=== PATIENT | female | born 1960 | race Caucasian/White ===

== ENCOUNTER → 2017-04-03 | Outpatient (CLI) | payer OTHER ==
[~2017-04-03] MED LIST: CALC1TAB27 PO; CHOL2000 PO; CRANPOW PO; FSMD/70 PO; LACT1CAP6 PO; LORA-741 PO
--- NOTE | 2017-04-03 17:04 | DIAGNOSTIC IMAGING REPORT ---
LEFT FOOT MIN 3 VIEWS ROUTINE CLINICAL HISTORY: TRAUMA/FALL trauma. Pain. COMPARISON: None. DISCUSSION: Heel spur. Mild degenerative changes throughout. No acute bony abnormality. Cortical margins are intact. There is no evidence for soft tissue swelling. IMPRESSION: Heel spur. Mild degenerative change. No acute bony abnormality. The above report was generated using voice recognition software. It may contain grammatical, syntax or spelling errors. Electronically signed by: Alejandro Kelly M.D. 04/03/2017 5:03 PM Dictated Date/Time: 04/03/2017 5:02 PM
--- NOTE | 2017-04-03 17:06 | DIAGNOSTIC IMAGING REPORT ---
RIGHT ANKLE MIN 3 VIEWS ROUTINE CLINICAL HISTORY: TRAUMA/FALL Right pain COMPARISON: None. DISCUSSION: The bones and joint spaces appear intact. There is no evidence of fracture, dislocation or bony disease. Small heel spur. Minimal ossification Achilles tendon insertion. Subtalar joint is intact. IMPRESSION: Small heel spur. No acute bony abnormality. The above report was generated using voice recognition software. It may contain grammatical, syntax or spelling errors. Electronically signed by: Alejandro Kelly M.D. 04/03/2017 5:04 PM Dictated Date/Time: 04/03/2017 5:03 PM
== END | disposition home or self-care (01) ==
LOC: C.RAD 16:28
PROVIDERS: ATTEND Internal Medicine
DX: S99.911A Unspecified injury of right ankle, initial encounter (principal); S99.922A Unspecified injury of left foot, initial encounter; W19.XXXA Unspecified fall, initial encounter; M77.32 Calcaneal spur, left foot

== ENCOUNTER → 2017-07-17 | Outpatient (CLI) | payer OTHER ==
--- NOTE | 2017-07-17 09:35 | DIAGNOSTIC IMAGING REPORT ---
L HIP UNILATERAL 2 VIEWS CLINICAL HISTORY: 56 years-old Female presenting with LEFT HIP PAIN. TECHNIQUE: Frontal and frog-leg lateral views of the left hip were obtained. COMPARISON: CT from 12/07/2012. FINDINGS: Left hip joint congruent. No advanced degenerative change. Minimal heterotopic ossification noted in the region of the greater and lesser tuberosities. Acute fracture or malalignment. Visualized portion of the bony pelvis normal. Few pelvic phleboliths noted. IMPRESSION: No acute osseous injury of the left hip. Electronically signed by: Boris Rangel M.D. 07/17/2017 9:33 AM Dictated Date/Time: 07/17/2017 9:32 AM
== END | disposition home or self-care (01) ==
LOC: C.RAD 09:17
PROVIDERS: ATTEND Internal Medicine
DX: M25.552 Pain in left hip (principal)

== ENCOUNTER → 2018-04-12 | Outpatient (CLI) | payer OTHER | END | disposition home or self-care (01) | LOC: C.MAMM 13:13 | PROVIDERS: ATTEND Internal Medicine | DX: M81.0 Age-related osteoporosis without current pathological fracture (principal); M85.89 Other specified disorders of bone density and structure, multiple sites ==

== ENCOUNTER 2021-10-14 23:25 | Observation (INO) ==
[2021-10-14 23:57] LABS: Basophils # (auto) 0.04 K/uL (0-0.2); Basophils % (auto) 0.2 %; Eosinophils % (auto) 0.5 %; Hemoglobin 14.5 g/dL (12.0-16.0); Immature Granulocytes # (auto) 0.23 K/uL (0.00-0.02); Immature Granulocytes % (auto) 1.2 %; Lymphocytes # (auto) 4.68 K/uL (1.2-3.4); Lymphocytes % (auto) 24.5 %; Mean Corpuscular Hemoglobin 31.4 pg (25-34); Mean Corpuscular Hgb Conc 33.7 g/dL (32-36); Mean Corpuscular Volume 93.1 fL (80-100); Monocytes % (auto) 7.3 %; Neutrophils # (auto) 12.62 K/uL (1.4-6.5); Neutrophils % (auto) 66.3 %; Platelet Count 268 K/uL (130-400); RDW Coefficient of Variation 13.7 % (11.5-14.5); RDW Standard Deviation 46.4 fL (36.4-46.3); Red Blood Count 4.62 M/uL (4.2-5.4); White Blood Count 19.07 K/uL (4.8-10.8)
[2021-10-15 00:19] LABS: Troponin I < 0.03 ng/ml (0-0.04)
[2021-10-15 00:22] LABS: Alanine Aminotransferase 17 U/L (7-52); Albumin Globulin Ratio 1.8 (0.9-2); Albumin Level 4.2 gm/dl (3.4-5.0); Alkaline Phosphatase 96 U/L (34-104); Anion Gap 7 (3-11); Aspartate Aminotransferase 11 U/L (13-39); BUN Creatinine Ratio 29.2 (10-20); Bilirubin,Total 0.3 mg/dl (0.2-1.0); Blood Urea Nitrogen 19 mg/dl (6-23); Calcium 9.7 mg/dl (8.5-10.1); Carbon Dioxide 30 mmol/L (21-32); Chloride 103 mmol/L (98-107); Creatinine Clr Calc Pharmacy 86.4 ml/min; Est GFR (African American) 109.5 ml/min; Est GFR (Non-African American) 94.5 ml/min; Globulin 2.3 gm/dl (2.5-4.0); Glucose 133 mg/dl (70-99(Fasting)); Lipase 26 U/L (11-82); Potassium 3.3 mmol/L (3.5-5.1); Sodium 140 mmol/L (136-145); Total Protein 6.5 gm/dl (6.0-8.3)
[2021-10-15] MEDS ORDERED: SODIUM CHLORIDE 0.9% 1000ML 500 ML IV ONE (00:23)
--- NOTE | 2021-10-15 00:25 | Emergency Department Note ---
Impression & Plan Chest pain ADMIT ED Provider Note HPI: The patient is a 61-year-old female who presents the emergency department with a chief complaint of chest pain. Patient states the chest pain is been ongoing for the past hour and a half. States that it is substernal in nature, radiates somewhat up towards her jaw. Patient states it also radiates to her back. She states that the pain is actually much improved from previous by the time she is arrived here in the ED on my initial examination. Patient denies any nausea or vomiting, on arrival here to the ED she is hypertensive but otherwise in no acute distress, saturating well on room air. 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 No pulmonary emboli are identified. The thoracic aorta is nondilated. There is no aneurysm or dissection. The heart size is upper normal. No pericardial effusion. Mediastinal or axillary lymphadenopathy or mass is identified. The lungs are well inflated. There is slight interstitial haziness greatest inferiorly. This is nonspecific and could represent pulmonary edema or subsegmental atelectasis, viral pneumonitis is considered less likely. No pneumothorax or pleural effusion. Mild to moderate degenerative changes in the lower thoracic spine. No acute fracture or bone lesion. Limited images of the upper abdomen appear unremarkable. Radiologist: Mundo Ahmadi MD Medical Decision Making: Patient presented to the emergency department the chief complaint of chest pain. On arrival here to the ED she is hemodynamically stable, states her pain is improving. EKG does not show any acute ischemic changes, troponin is negative x1, given the nature of the patient's pain and radiation to her back, she states it was relatively acute and severe, I did obtain CT angiography that does not show any evidence of pulmonary embolism or aortic dissection. Patient is noted have a leukocytosis, she tells me she is finishing a steroid taper for the past 3 weeks for "Covid symptoms". I suspect this is the source of her leukocytosis as she has not had any fevers, denies any recent coughing, she otherwise appears well and is afebrile here in the ED. In regards to the patient's chest discomfort, this was relatively acute in onset and happened shortly prior to arrival to the ED, I believe given her risk factors including longstanding smoking history, obesity, hyperlipidemia, she would benefit from admission for trending of troponins and stress testing in the morning. Patient tells me she has not had a stress test previously. I discussed the above findings with the on-call hospitalist service for [facility] and the patient was admitted to a telemetry bed in stable condition. Diagnosis: 1. Chest pain, nonspecific 2. Leukocytosis 3. Active smoker/tobacco use 4. History of hyperlipidemia 5. Hypertension Disposition: Admission Alejandro Payne DO Emergency Medicine Past Med/Surg History Medical History (Updated 10/15/21 @ 06:18 by Alejandro Payne DO) COVID-19 virus infection DCIS (ductal carcinoma in situ) of breast (~05/09/14) Fibromyalgia Surgical History (Updated 10/04/21 @ 16:09 by Rosy Davis MD) S/P mastectomy, bilateral (05/28/14) Family History Aunt Breast cancer Aunt Ovarian cancer Denies family history of Prostate cancer Myocardial infarction Colorectal cancer Social History (Updated 10/04/21 @ 16:17 by Kari Govea LPN) Smoking Status: Current every day smoker Tobacco Type: Cigarettes Second Hand Exposure: No; Do You Dip or Chew Tobacco: No; Tobacco Cessation Education Requested by Patient: No (pt declined) Hx Alcohol Use: No Hx Substance Use: No Preferred Language: Uzbek Communication Ability: Effective Hotel Or Motel Receptionist Required: Yes Beliefs That Will Affect Care: None marital status: Current Living Situation: Spouse current occupational status: employed 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 [employer] How many Children do You have: 3 Feels Safe at Home: Yes Safety Concerns: Feels Safe At This Time Childhood Exposure to Second-Hand Smoke: Yes caffeine: Yes Dental Care, Regularly: Yes Physical Activity Frequency: Daily Seatbelt Use: always Sunscreen Use: Yes Allergies Allergies Allergy/AdvReac Type Severity Reaction Status Date / Time latex Allergy Unknown local skin Verified 10/15/21 00:36 rash No Known Drug Allergies Allergy Unknown Verified 10/15/21 00:36 Home Meds Home Medications Medication Instructions Recorded Confirmed duloxetine 30 mg capsule,delayed 30 mg PO DAILY 05/03/21 10/15/21 release duloxetine 60 mg capsule,delayed 60 mg PO DAILY 05/03/21 10/15/21 release B-complex with vitamin C 1 tab PO DAILY 10/04/21 10/15/21 calcium citrate 200 mg 1 tab PO DAILY 10/04/21 10/15/21 calcium-vitamin D3 6.25 mcg (250 unit) tablet (Citracal-D3 Petites) cholecalciferol (vitamin D3) 25 25 mcg PO DAILY 10/04/21 10/15/21 mcg (1,000 unit) capsule coffee 100 mg theanine 200 mg See Rx Instructions PO .COMPLEX 10/04/21 10/15/21 superoxide dismutase 10 mg capsule (Neuriva De-Stress) cranberry fruit concentrate 250 mg 250 mg PO DAILY tab 10/04/21 10/15/21 chewable tablet (Azo Cranberry) vit C,E,zinc,copper-[id number] 250 1 cap PO DAILY 10/04/21 10/15/21 mg-lutein 5 mg-zeaxanthin 1 mg capsule (Ocuvite Adult 50 Plus) vitamin A 2,400 mcg capsule 2,400 mcg PO DAILY 10/04/21 10/15/21 vitamin E (dl, acetate) 180 mg 180 mg PO DAILY 10/04/21 10/15/21 (400 unit) capsule Previous Rx's Medication Instructions Recorded nicotine See Rx Instructions TRANSDERMAL 10/04/21 21mg/24hr-14mg/24hr-7mg/24hr daily .COMPLEX #56 patch transderm patches,sequentl prednisone 20 mg tablet See Rx Instructions PO .COMPLEX 10/04/21 #30 tab atorvastatin 40 mg tablet 40 mg PO DAILY #30 tab 10/05/21 Results & Data (ED) Vital Signs Vital Signs - 24 hr 10/14/21 23:32 10/15/21 00:35 10/15/21 02:00 Temperature 36.4 C L Temperature Source Temporal Artery Scan Pulse Rate 76 77 Pulse Rate [Finger] 77 68 Respiratory Rate 18 18 18 Respiratory Effort / Characteristics Non-Labored Spontaneous Respiratory Depth Normal Respiratory Pattern Regular Blood Pressure 161/85 H Blood Pressure [Right Arm] 137/81 159/94 H Blood Pressure Mean 110 Blood Pressure Mean [Right Arm] 99 115 Blood Pressure Position Sitting Blood Pressure Position [Right Arm] Lying Lying Pulse Oximetry 97 96 94 Oxygen Delivery Method Room Air Room Air Room Air Sepsis Recent Fever Within 48 Hours No Sepsis New/Unexplained Change in Mental Status No Sepsis Action Taken by Nursing No Action Required 10/15/21 02:54 Temperature Temperature Source Pulse Rate Pulse Rate [Finger] 72 Respiratory Rate 18 Respiratory Effort / Characteristics Respiratory Depth Respiratory Pattern Blood Pressure Blood Pressure [Right Arm] 140/92 Blood Pressure Mean Blood Pressure Mean [Right Arm] 108 Blood Pressure Position Blood Pressure Position [Right Arm] Lying Pulse Oximetry 92 Oxygen Delivery Method Room Air Sepsis Recent Fever Within 48 Hours Sepsis New/Unexplained Change in Mental Status Sepsis Action Taken by Nursing Laboratory Data Result diagrams: 10/15/21 05:52 10/14/21 23:45 Lab Results 10/14/21 10/14/21 10/15/21 Range/Units 23:45 23:45 00:46 WBC 19.07 H (4.8-10.8) K/uL RBC 4.62 (4.2-5.4) M/uL Hgb 14.5 (12.0-16.0) g/dL Hct 43.0 (37-47) % MCV 93.1 (80-100) fL MCH 31.4 (25-34) pg MCHC 33.7 (32-36) g/dL RDW Std Deviation 46.4 H (36.4-46.3) fL RDW Coeff of Sabra 13.7 (11.5-14.5) % Plt Count 268 (130-400) K/uL MPV 10.0 (7.4-10.4) fL Immature Gran % (Auto) 1.2 % Neut % (Auto) 66.3 % Lymph % (Auto) 24.5 % [place] % (Auto) 7.3 % Eos % (Auto) 0.5 % Baso % (Auto) 0.2 % Neut # (Auto) 12.62 H (1.4-6.5) K/uL Lymph # (Auto) 4.68 H (1.2-3.4) K/uL [place] # (Auto) 1.40 H (0.11-0.59) K/uL Eos # (Auto) 0.10 (0-0.5) K/uL Baso # (Auto) 0.04 (0-0.2) K/uL Immature Gran # (Auto) 0.23 H (0.00-0.02) K/uL Sodium 140 (136-145) mmol/L Potassium 3.3 L (3.5-5.1) mmol/L Chloride 103 (98-107) mmol/L Carbon Dioxide 30 (21-32) mmol/L Anion Gap 7 (3-11) BUN 19 (6-23) mg/dl Creatinine 0.65 (0.6-1.2) mg/dl Est Cr Clr Drug Dosing 86.4 ml/min Est GFR ( Amer) 109.5 ml/min Est GFR (Non-Af Amer) 94.5 ml/min BUN/Creatinine Ratio 29.2 H (10-20) Glucose 133 H (70-99(Fasting)) mg/dl Lactate 1.1 (0.4-2.0) mmol/L Calcium 9.7 (8.5-10.1) mg/dl Total Bilirubin 0.3 (0.2-1.0) mg/dl AST 11 L (13-39) U/L ALT 17 (7-52) U/L Alkaline Phosphatase 96 (34-104) U/L Troponin I < 0.03 (0-0.04) ng/ml Total Protein 6.5 (6.0-8.3) gm/dl Albumin 4.2 (3.4-5.0) gm/dl Globulin 2.3 L (2.5-4.0) gm/dl Albumin/Globulin Ratio 1.8 (0.9-2) Lipase 26 (11-82) U/L Procalcitonin (0-0.5) ng/ml SARS-CoV-2, RNA, NAAT (NEGATIVE) 10/15/21 10/15/21 Range/Units 00:46 02:28 WBC (4.8-10.8) K/uL RBC (4.2-5.4) M/uL Hgb (12.0-16.0) g/dL Hct (37-47) % MCV (80-100) fL MCH (25-34) pg MCHC (32-36) g/dL RDW Std Deviation (36.4-46.3) fL RDW Coeff of Sabra (11.5-14.5) % Plt Count (130-400) K/uL MPV (7.4-10.4) fL Immature Gran % (Auto) % Neut % (Auto) % Lymph % (Auto) % [place] % (Auto) % Eos % (Auto) % Baso % (Auto) % Neut # (Auto) (1.4-6.5) K/uL Lymph # (Auto) (1.2-3.4) K/uL [place] # (Auto) (0.11-0.59) K/uL Eos # (Auto) (0-0.5) K/uL Baso # (Auto) (0-0.2) K/uL Immature Gran # (Auto) (0.00-0.02) K/uL Sodium (136-145) mmol/L Potassium (3.5-5.1) mmol/L Chloride (98-107) mmol/L Carbon Dioxide (21-32) mmol/L Anion Gap (3-11) BUN (6-23) mg/dl Creatinine (0.6-1.2) mg/dl Est Cr Clr Drug Dosing ml/min Est GFR ( Amer) ml/min Est GFR (Non-Af Amer) ml/min BUN/Creatinine Ratio (10-20) Glucose (70-99(Fasting)) mg/dl Lactate (0.4-2.0) mmol/L Calcium (8.5-10.1) mg/dl Total Bilirubin (0.2-1.0) mg/dl AST (13-39) U/L ALT (7-52) U/L Alkaline Phosphatase (34-104) U/L Troponin I (0-0.04) ng/ml Total Protein (6.0-8.3) gm/dl Albumin (3.4-5.0) gm/dl Globulin (2.5-4.0) gm/dl Albumin/Globulin Ratio (0.9-2) Lipase (11-82) U/L Procalcitonin < 0.05 (0-0.5) ng/ml SARS-CoV-2, RNA, NAAT NEGATIVE (NEGATIVE) Administered Medications Discontinued Medications Aspirin (Aspirin Chew 324 Mg) 324 mg PO NOW STA Stop: 10/15/21 02:23 Last Admin: 10/15/21 02:27 Dose: 324 mg Documented by: [id number] Sodium Chloride (Nss 1000ml) 500 mls @ 999 mls/hr IV .Q31M ONE Stop: 10/15/21 00:53 Last Infusion: 10/15/21 01:32 Dose: 0 mls/hr Documented by: [id number] Admin: 10/15/21 00:48 Dose: 999 mls/hr Documented by: [id number] Ioversol (Optiray 320 125ml) 121 ml IV ONCE ONE Stop: 10/15/21 01:24 Last Admin: 10/15/21 01:23 Dose: 1 ml Documented by: [id number] Discharge Plan Visit Data Chief Complaint: Cardiac Assessment Stated Complaint: CHEST PAIN/PRESSURE ED Provider: Alejandro Payne Discharge Problem: Chest pain Patient Disposition: Admitted As Inpatient Discharge Instructions Interventions: ED Discharge Assessment Last Done: 10/15/21 04:16 Discharge Problem: Chest pain Qualifiers: Chest pain type: unspecified Qualified Code(s): R07.9 - Chest pain, unspecified
[2021-10-15] MEDS ORDERED: OPTIRAY 320 125ml IV ONE (01:23)
[2021-10-15] MEDS ORDERED: ASPIRIN CHEW 324 MG PO STA (02:22)
--- NOTE | 2021-10-15 02:36 | History & Physical Report ---
Date of Service October 15, 2021 Assessment & Plan (1) Chest pain: Plan: This is a 61-year-old female with a past history of tobacco use (40 pack year), HLD, DCIS status post bilateral mastectomy and fibromyalgia who presents for evaluation of chest pain. She said she was nearly asleep at 2300 last night when she developed a sudden-onset, heavy-feeling chest pain in the left side of her chest that extended up to her jaw and radiated down her arms. Her history and risk factors are suspicious for ACS, but troponin and ECG tests have been normal since arrival (to date). She remains for chest pain rule-out. Chest Pain Patient reporting sudden onset chest pain with radiation to the jaw and arms that began at 2300 the night of admission; also noted that with her home WRIST blood pressure monitor, blood pressure was 200/140 at that time History and reported symptoms are concerning for ACS, especially given numerous risk factors: Over 46-epaf-hdix smoking history, obesity, hyperlipidemia, metabolic syndrome/prediabetes --> HEART Score: 4 (moderate risk) DDX: HTN urgency/emergency considered as a possibility (home reading noted, but wrist monitor), but acuity of this and only symptoms being within the chest is somewhat atypical; further, not on any antiHTNs -- suspect elevated reading was likely reactive to the pain. In the context of also consuming a carb heavy meal with red sauce, gastritis/GERD/esophageal spasm also considered as a possibility, however seem less likely at this time. Would not be typical of a fibromyalgia flare. Mastectomy scar tissue / myofascial pain also considered, but patient reports pain as different than that. Work-up as follows: Notable leukocytosis with PMN predominance in the setting of 2 weeks of steroids CTA without any evidence of dissection or acute pulmonary process, other t monet some haziness at both bases EKG without acute repolarization or conduction abnormalities Troponin negative on arrival Continue trending troponin total of 3 times Repeat EKG in a.m. Monitor on telemetry If troponin does not result positive, proceed with stress test (exercise) which is already ordered while here If troponin does result positive: Order TTE, start low-dose heparin drip, consult cardiology Consider anti-acid therapy if indicated Check lipid panel in a.m. We will make n.p.o. now until clinical picture is clear, troponin labs return (2) Leukocytosis: Plan: Patient noted to have leukocytosis to 19 with PMN predominance, but as well as lymphocytosis and monocytosis No obvious infectious source at this time; patient denying any respiratory symptoms, no skin issues, no GI symptoms In the setting of nearly 2 weeks of prednisone therapy, suspect largely demargination reaction Monitor Discontinue prednisone as above (3) Fibromyalgia: Plan: History of fibromyalgia noted Continue Cymbalta 90 mg daily (4) COVID-19 virus infection: Plan: History of COVID-19 noted, approximately 3 weeks prior to admission Covid testing on admission negative We will stop the steroid taper she was on as an outpatient for sinusitis-like symptoms (5) S/P mastectomy, bilateral: Plan: History noted; per PCP notes, no longer gets mammography and no longer follows with oncology (6) Tobacco use: Plan: Patient reports smoking over 1 pack/day for over 40 years: 76-uwaj-[id number] history Patient said that her quit date was originally supposed to be tomorrow; congratulated her on this and encouraged her to maintain this goal despite the ongoing events, and if anything, to use these events as motivation Can supply nicotine replacement patches as needed while here Will require further discussion on lung cancer screening, if not done already, as an outpatient with PCP (7) HLD (hyperlipidemia): Plan: History noted Continue atorvastatin 40 mg daily Lipid panel reviewed from earlier this month; ASCVD 11.8%can consider further discussions as outpatient on aspirin, if is not relevant during the rest of the stay with chest pain work-up (8) Elevated blood pressure reading: Plan: Patient reported reading of 200/140 at home with a wrist blood pressure cuff during the chest pain event; however, suspect large margin of error with this Blood pressures have been elevated since arrival here, but in the context of a stressful event Outpatient blood pressure readings seem reasonable; will require further monitoring in the setting of her metabolic syndrome and numerous risk factors for cardiovascular disease Plan: Code: DNR/DNIdiscussed at the bedside with patient Dispo: MedSurg with telemetry Prophylaxis: Mechanical SCDs, if anticipating staying longer, can consider pharmacologic Diet: N.p.o., consider transition to HH when appropriate History of Present Illness Primary Care Provider: Rosy Davis MD While happening, she used her wrist blood pressure cuff and said the reading was ~200/140. No reported GOMEZ/vision abnormalities during this time, and denied n/v. She does report eating pasta w/ meatsauce last night, and initially questioned whether her symptoms may have been secondary to this - but said she doesn't normally struggle with heartburn, so was thought to be less likely. She also wondered if it could have been secondary to pain from her mastectomy areas / scar tissue - but again, has never had pain like this before, and no recent skin changes/rash/discharge. She called her [id number]-fk-lnc who told her to go to the ER. Up until this event, she said she has mostly been in her normal health. Of note, patient recently saw her PCP on 10/04/2021, whereby she reported having history of COVID-19 approximately 3 weeks prior. She was given a course of prednisone at this time to help with her sinus symptoms (post-COVID). She says that over the past few weeks, she has been sweating more with even minimal physical activity. Denies CP/SOB with exertion. No PND/orthopnea. Medications were reviewed, and include atorvastatin 40 mg, duloxetine 90 mg daily, nicotine transdermal patch, vitamins. In the ED, she was found to have normal vital signs. EKG was without conduction or repolarization abnormalities. Labs were significant for leukocytosis to nineteen with neutrophilia and lymphocytosis and monocytosis. BM P reveals mild hypokalemia 3.3, troponin normal, LFTs within normal limits, lipase and pro-Erik negative. CTA of the chest demonstrated no pulmonary emboli, did demonstrate some interstitial haziness that was concerning for atelectasis/viral pneumonitis/pulmonary edema. Blood cultures were obtained. She was given ASA x 1 and called to admission for further cardiac work-up. Allergies Allergy/AdvReac Type Severity Reaction Status Date / Time latex Allergy Unknown local skin Verified 10/15/21 00:36 rash No Known Drug Allergies Allergy Unknown Verified 10/15/21 00:36 Home Medications Medication Instructions Recorded Confirmed Type duloxetine 30 mg capsule,delayed 30 mg PO DAILY 05/03/21 10/15/21 History release duloxetine 60 mg capsule,delayed 60 mg PO DAILY 05/03/21 10/15/21 History release B-complex with vitamin C 1 tab PO DAILY 10/04/21 10/15/21 History calcium citrate 200 mg 1 tab PO DAILY 10/04/21 10/15/21 History calcium-vitamin D3 6.25 mcg (250 unit) tablet (Citracal-D3 Petites) cholecalciferol (vitamin D3) 25 25 mcg PO DAILY 10/04/21 10/15/21 History mcg (1,000 unit) capsule coffee 100 mg theanine 200 mg See Rx Instructions PO .COMPLEX 10/04/21 10/15/21 History superoxide dismutase 10 mg capsule (Neuriva De-Stress) cranberry fruit concentrate 250 mg 250 mg PO DAILY tab 10/04/21 10/15/21 History chewable tablet (Azo Cranberry) nicotine See Rx Instructions TRANSDERMAL 10/04/21 10/15/21 Rx 21mg/24hr-14mg/24hr-7mg/24hr daily .COMPLEX #56 patch transderm patches,sequentl prednisone 20 mg tablet See Rx Instructions PO .COMPLEX 10/04/21 10/15/21 Rx #30 tab vit C,E,zinc,copper-wcjqe8m 250 1 cap PO DAILY 10/04/21 10/15/21 History mg-lutein 5 mg-zeaxanthin 1 mg capsule (Ocuvite Adult 50 Plus) vitamin A 2,400 mcg capsule 2,400 mcg PO DAILY 10/04/21 10/15/21 History vitamin E (dl, acetate) 180 mg 180 mg PO DAILY 10/04/21 10/15/21 History (400 unit) capsule atorvastatin 40 mg tablet 40 mg PO DAILY #30 tab 10/05/21 10/15/21 Rx Past Med/Surg History Medical History (Updated 10/15/21 @ 06:18 by Alejandro Payne DO) COVID-19 virus infection DCIS (ductal carcinoma in situ) of breast (~05/09/14) Fibromyalgia Surgical History (Updated 10/04/21 @ 16:09 by Rosy Davis MD) S/P mastectomy, bilateral (05/28/14) Family History Aunt Breast cancer Aunt Ovarian cancer Denies family history of Prostate cancer Myocardial infarction Colorectal cancer Social History (Updated 10/04/21 @ 16:17 by Kari Govea LPN) Smoking Status: Current every day smoker Tobacco Type: Cigarettes Second Hand Exposure: No; Do You Dip or Chew Tobacco: No; Tobacco Cessation Education Requested by Patient: No (pt declined) Hx Alcohol Use: No Hx Substance Use: No Preferred Language: Polish Communication Ability: Effective 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 HEENT: NCAT. - Eyes - Sclera are white, anicteric, and without injection. PERRL. - Mouth - MMM with no tonsillar edema or exudates. - Neck - supple and without LAD. No JVD. Cardiac: Normal rate and regular rhythm; S1 and S2 present with no murmurs, rubs, or gallops. Pulmonary: Good respiratory effort with symmetric expansion of the chest. No use of accessory muscles. Lungs were clear to auscultation bilaterally with no crackles or wheezes. Abdominal: Normoactive bowel sounds. Abdomen was soft, nondistended, and non- tender to palpation. Extremities: Upper and lower extremities are warm and well perfused. Radial and dorsalis pedis pulses were 2+ b/l. Psych: Well-developed, well-nourished, appropriately dressed for occasion. Be havior is cooperative and appropriate. Affect is WNL. Insight is appropriate. Results & Data Results & Data ([facility]) Vital Signs (Past 12 Hours) Vital Signs Temp Pulse Pulse Resp BP BP Pulse Ox 10/15/21 00:35 77 77 18 137/81 96 10/14/21 23:32 36.4 C L 76 18 161/85 H 97 Supervising Physician Co-Signing Physician Notes Patient seen and examined, chart reviewed, case discussed with Dr. Knutson and I agree with the assessment and plan as documented above. In brief, patient is a 61yo female with history of tobacco, elevated blood pressure reading and HLP presenting with chest discomfort with raditaiton into neck, back. On exam she is resting comfortably, NAD Skin - intact HEENT -NC/AT, PERRL, MMM, Neck supple Heart - +S1/S2, regular, no m/r/g Lungs - CTA Abd - +BS, soft, NT/ND Ext - no edema Labs and images reviewed Assessment/Plan - 61yo female with ongoing tobacco use, HTN, HLP presenting with chest discomfort. Troponin x 1 negative. second is pending at this time EKG wtih no acute ischemic changes -trend troponin -stress testing Resident Activity Tracking Resident Involvement: Resident Care Provided Care Provided: [facility]
[2021-10-15] MEDS ORDERED: ACETAMINOPHEN 325 MG TAB PO PRN (02:54)
--- NOTE | 2021-10-15 06:12 | Billing Data ---
Date of Service October 15, 2021 Coding Level of Care Code INT OBSERVATION CARE 50M LVL 2
[2021-10-15 06:13] LABS: Basophils # (auto) 0.05 K/uL (0-0.2); Basophils % (auto) 0.3 %; Eosinophils # (auto) 0.13 K/uL (0-0.5); Eosinophils % (auto) 0.9 %; Hematocrit (blood only) 41.6 % (37-47); Hemoglobin 13.8 g/dL (12.0-16.0); Immature Granulocytes # (auto) 0.17 K/uL (0.00-0.02); Immature Granulocytes % (auto) 1.1 %; Lymphocytes # (auto) 4.96 K/uL (1.2-3.4); Lymphocytes % (auto) 32.5 %; Mean Corpuscular Hgb Conc 33.2 g/dL (32-36); Mean Corpuscular Volume 93.5 fL (80-100); Mean Platelet Volume 10.3 fL (7.4-10.4); Monocytes # (auto) 1.08 K/uL (0.11-0.59); Monocytes % (auto) 7.1 %; Neutrophils # (auto) 8.89 K/uL (1.4-6.5); Neutrophils % (auto) 58.1 %; Platelet Count 245 K/uL (130-400); RDW Coefficient of Variation 13.7 % (11.5-14.5); RDW Standard Deviation 46.9 fL (36.4-46.3); Red Blood Count 4.45 M/uL (4.2-5.4); White Blood Count 15.28 K/uL (4.8-10.8)
[2021-10-15 06:29] LABS: Anion Gap 6 (3-11); Blood Urea Nitrogen 18 mg/dl (6-23); Calcium 8.7 mg/dl (8.5-10.1); Carbon Dioxide 27 mmol/L (21-32); Chloride 107 mmol/L (98-107); Creatinine Clr Calc Pharmacy 110.4 ml/min; Est GFR (African American) 117.1 ml/min; Glucose 102 mg/dl (70-99(Fasting)); Potassium 3.9 mmol/L (3.5-5.1); Sodium 140 mmol/L (136-145)
[2021-10-15 06:31] LABS: Troponin I < 0.03 ng/ml (0-0.04)
--- NOTE | 2021-10-15 08:03 | XRay Report ---
XR chest 1V portable HISTORY: Atypical chest pain. Shortness of breath. COMPARISON: Chest 05/20/2014. FINDINGS: No pneumothorax. No pleural effusions. The cardiac silhouette is mildly enlarged. There is a mildly tortuous thoracic aorta. There is mild diffuse interstitial thickening which may be chronic. No focal lung consolidations to suggest pneumonia. No evidence for pulmonary edema. IMPRESSION: Cardiomegaly with mild interstitial thickening. This may be chronic. No focal lung consolidations jim ntified. ACT 112: Negative or not required by law. Electronically signed by: Sixto Celaya M.D. 10/15/2021 8:02 AM
--- NOTE | 2021-10-15 08:22 | CT Scan Report ---
CT ANGIOGRAPHY OF THE CHEST, PULMONARY EMBOLUS PROTOCOL CLINICAL HISTORY: Shortness of breath. Atypical chest pain. Evaluate for pulmonary embolus. COMPARISON STUDY: Chest radiograph October 14, 2021. TECHNIQUE: Following IV administration of 121 mL of Optiray, helical axial images of the chest were o btained utilizing the pulmonary embolus protocol. Maximal intensity projections and sagittal and cor onal reformats were viewed on an independent 3D workstation. IV contrast was administered without co mplication. Automated exposure control was utilized for the study. A dose lowering technique was ut ilized adhering to the principles of ALARA. CT DOSE: 468.47 mGy.cm FINDINGS: No pulmonary emboli are identified. There is no thoracic aortic dissection. Mild cardiomeg fitz is present. There are no enlarged axillary, mediastinal or hilar lymph nodes. No pericardial effu alex is present. No pneumothorax or pleural effusion is present. Central airways are patent. There ar e groundglass opacities within the lungs with mosaic attenuation. No acute fracture or suspicious les ion is identified within visualized portions of the bony thorax. Visualized portions of the upper abd omen are unremarkable. IMPRESSION: 1. No pulmonary emboli identified. 2. Ground glass opacities with mosaic attenuation within the lungs. The findings may reflect air trap ping. An infectious process is within the differential although considered less likely. 3. Mild cardiomegaly. ACT 112: Negative or not required by law. Electronically signed by: Abhijit Pringle M.D. 10/15/2021 8:21 AM
[2021-10-15] MEDS ORDERED: DULoxetine HCL 30 MG CAP PO SCH (09:00)
[2021-10-15] MEDS ORDERED: TOCOPHERYL, DL-ALPHA 400 UNITS 180 MG CAP PO SCH (09:00)
[2021-10-15] MEDS ORDERED: NON-FORMULARY MEDICATION (Cranberry Fruit Concentrate [Azo Cranberry] 250 mg tablet,chewab PO SCH (09:00)
[2021-10-15] MEDS ORDERED: CEROVITE ADV FORMULA TAB PO SCH (09:00)
[2021-10-15] MEDS ORDERED: DULoxetine HCL 60 MG CAP PO SCH ×2 (09:00→21:00)
[2021-10-15] MEDS ORDERED: VITAMIN B COMPLEX TAB PO SCH (09:00)
[2021-10-15] MEDS ORDERED: CHOLECALCIFEROL 1,000 UNITS 25 MCG TAB PO SCH (09:00)
[2021-10-15] MEDS ORDERED: CALCIUM 600MG + VIT D 400 IU TAB PO SCH (09:00)
[2021-10-15] MEDS ORDERED: ATORVASTATIN 40 MG TAB PO SCH (09:00)
--- NOTE | 2021-10-15 09:50 | Medical Student Progress Note ---
Date of Service October 15, 2021 Assessment & Plan (1) Chest pain: Plan: This is a 61-year-old female with a 47-nbjn-tuie smoking history, HLD, DCIS s/p bilateral mastectomy, and fibromyalgia who presents with acute new-onset chest pain. Chest Pain, resolved - per patient, pain has resolved - patient describes episode of pain as dull band across her chest as well as a dull band across her throat, no radiation to shoulder or back - in the setting of patient's smoking history and HLD, concern for ACS - Differential: ACS vs. GERD/esophageal spasm/gastritis vs. fibromyalgia flare/MSK pain vs. PNA vs. PE - ACS: pain resolved, negative troponin x2, normal EKG, stress echo - GERD/esophageal spasm/gastritis: consider in the setting of carb-heavy meal with tomato sauce - PNA: CXR negative, Chest CTA showed ground glass opacities, pt showed no symptoms, procal negative - fibromyalgia flare/MSK pain: not similar to pain she has in the past, nonreproducible on exam - PE: Chest CTA showed no PE Continue trending troponin total of 3 times Monitor on telemetry Check lipid panel in a.m. Leukocytosis, resolving - Patient noted to have leukocytosis to 19 - patient denies infectious symptoms - In the setting of nearly 2 weeks of prednisone therapy, suspect largely demargination reaction Fibromyalgia - Continue Cymbalta 90 mg daily Tobacco use: Patient reports smoking over 1 pack/day for over 40 years: 80-gswz-nuzs history Patient said that her quit date was originally supposed to be tomorrow; congratulated her on this and encouraged her to maintain this goal despite the ongoing events, and if anything, to use these events as motivation Can supply nicotine replacement patches as needed while here Will require further discussion on lung cancer screening, if not done already, as an outpatient with PCP HLD (hyperlipidemia): History noted Continue atorvastatin 40 mg daily Lipid panel reviewed from earlier this month; ASCVD 11.8%can consider further discussions as outpatient on aspirin, if is not relevant during the rest of the stay with chest pain work-up Elevated blood pressure reading: Patient reported reading of 200/140 at home with a wrist blood pressure cuff during the chest pain event; however, suspect large margin of error with this Blood pressures have been elevated since arrival here, but in the context of a stressful event Outpatient blood pressure readings seem reasonable; will require further monitoring in the setting of her metabolic syndrome and numerous risk factors for cardiovascular disease Plan: Code: DNR/DNI Dispo: MedSurg with telemetry Prophylaxis: Mechanical SCDs, if anticipating staying longer, can consider pharmacologic Diet: N.p.o., consider transition to HH when appropriate Chest pain type: unspecified Qualified Code(s): R07.9 - Chest pain, unspecified (2) Leukocytosis: (3) Fibromyalgia: Admission and Anticipated Discharge Date Admission Date: October 15, 2021 Results & Data ([facility]) Vital Signs (Past 12 Hours) Vital Signs Temp Pulse Pulse Resp BP BP Pulse Ox 10/15/21 07:00 67 18 173/88 H 97 10/15/21 04:56 72 18 167/94 H 94 10/15/21 03:00 67 172/104 H 97 10/15/21 02:54 72 18 140/92 92 10/15/21 02:00 68 18 159/94 H 94 10/15/21 00:35 77 77 18 137/81 96 10/14/21 23:32 36.4 C L 76 18 161/85 H 97
--- NOTE | 2021-10-15 14:26 | Discharge Summary ---
Date of Service October 15, 2021 Admission HPI Per Admitting Provider While happening, she used her wrist blood pressure cuff and said the reading was ~200/140. No reported GOMEZ/vision abnormalities during this time, and denied n/v. She does report eating pasta w/ meatsauce last night, and initially questioned whether her symptoms may have been secondary to this - but said she doesn't normally struggle with heartburn, so was thought to be less likely. She also wondered if it could have been secondary to pain from her mastectomy areas / scar tissue - but again, has never had pain like this before, and no recent skin changes/rash/discharge. She called her [id number] who told her to go to the ER. Up until this event, she said she has mostly been in her normal health. Of note, patient recently saw her PCP on 10/04/2021, whereby she reported having history of COVID-19 approximately 3 weeks prior. She was given a course of prednisone at this time to help with her sinus symptoms (post-COVID). She says that over the past few weeks, she has been sweating more with even minimal physical activity. Denies CP/SOB with exertion. No PND/orthopnea. Medications were reviewed, and include atorvastatin 40 mg, duloxetine 90 mg daily, nicotine transdermal patch, vitamins. In the ED, she was found to have normal vital signs. EKG was without conduction or repolarization abnormalities. Labs were significant for leukocytosis to nineteen with neutrophilia and lymphocytosis and monocytosis. BM P reveals mild hypokalemia 3.3, troponin normal, LFTs within normal limits, lipase and pro-Erik negative. CTA of the chest demonstrated no pulmonary emboli, did demonstrate some interstitial haziness that was concerning for atelectasis/viral pneumonitis/pulmonary edema. Blood cultures were obtained. She was given ASA x 1 and called to admission for further cardiac work-up. Principal Diagnosis Atypical chest pain Discharge Exam Constitutional WD/WN, vitals as above Eyes PERRL, conjunctivae normal, anicteric sclerae Neck trachea midline, no thyromegaly Respiratory normal respiratory effort, lungs clear to auscultation Cardiovascular RRR, no murmur, no edema Chest (Breasts) Additional Comments: no tenderness to palpation of chest Skin warm, dry, well-perfused Psychiatric A+Ox3, euthymic affect Discharge Data Allergies Allergy/AdvReac Type Severity Reaction Status Date / Time latex Allergy Unknown local skin Verified 10/15/21 00:36 rash No Known Drug Allergies Allergy Unknown Verified 10/15/21 00:36 Consultations 10/15/21 02:53 ED Decision to Admit Stat Ordered Studies 10/15/21 00:23 CT angio chest PE protocol Urgent Hospital Course (1) Chest pain: Lucien is a 61-year-old female with a 11-vvta-juty smoking history, HLD, DCIS s/p bilateral mastectomy, and fibromyalgia who presented with acute new- onset chest pain that has now resolved. Chest Pain, resolved - Patient described waking up around 2300 with chest pain, which she described as a dull band across her chest as well as a dull band across her throat, with no radiation to shoulder or back - Differential: ACS vs. GERD/esophageal spasm/gastritis vs. fibromyalgia flare/MSK pain vs. PNA vs. PE * ACS: considered in context of [id number] smoking history and HLD; negative troponin x2, normal EKG, normal stress EKG, tolerated stress echo (results pending) * GERD/esophageal spasm/gastritis: consider in the setting of carb-heavy meal with tomato sauce * fibromyalgia flare/MSK pain: not similar to pain she has in the past, nonreproducible on exam * PNA: CXR negative, Chest CTA showed ground glass opacities, pt showed no symptoms, procal negative * PE: Chest CTA showed no PE - In the context of negative testing and resolved symptoms, consider GI etiology; advised patient to trial OTC famotidine Leukocytosis, resolving - likely secondary to recent prednisone use - prednisone discontinued - WBC count 19 on admission, downtrended to 15 on discharge - patient denies infectious symptoms Elevated blood pressure reading - Patient reported reading of 200/140 at home with a wrist BP cuff during the chest pain event - Blood pressures have been elevated in hospital (SBP 159-173) - Outpatient blood pressures normal, consider recheck in outpatient setting (2) Leukocytosis: (3) Elevated blood pressure reading: Total Time Total Time Spent Total Time Spent (In Minutes): 30 Discharge Plan Discharge Items Patient Disposition: Home - Self-Care Reason For Visit: CHEST PAIN Discharge Diagnosis: Esophagitis Activity: Per Instructions section Non-emergency contact: Primary Care Provider Call non-emergency contact if: you have any medication questions and your symptoms worsen Follow-up/Referrals: Rosy Davis MD [Primary Care Provider] - Diet: Heart Healthy [facility] Attending Provider Instructions: You were seen and admitted for concerns of chest pain. Fortunately, during this evaluation we did not find any evidence of injury to your heart, and you had no pain on a stress test of your heart. Given this constellation of your pain and the lack of markers for injury we believe it is safe for you to be discharged at this time, as it seems likely that your pain was more a result of stomach or esophagus irritation than from your heart. To address this irritation we would recommend that you take Pepcid 20mg twice daily for the next two weeks to limit the continued irritation from the foods you eat. This should effectively calm the irritation that originally caused you to present to the Emergency Department. Pending Studies at Discharge: Yes Studies:: Stress echocardiogram Stand-Alone Forms: [facility], Smoking Cessation Medications and DC Order Prescriptions: Continued atorvastatin 40 mg tablet 40 mg PO DAILY Qty: 30 RF: 2 duloxetine 60 mg capsule,delayed release(DR/EC) 60 mg PO DAILY RF: 0 duloxetine 30 mg capsule,delayed release(DR/EC) 30 mg PO DAILY RF: 0 Ocuvite Adult 50 Plus 250-5-1 mg capsule 1 cap PO DAILY RF: 0 B-complex with vitamin C Tablet 1 tab PO DAILY RF: 0 Neuriva De-Stress 100-200-10 mg capsule See Rx Instructions PO .COMPLEX RF: 0 vitamin E (dl, acetate) 180 mg (400 unit) capsule 180 mg PO DAILY RF: 0 Azo Cranberry 250 mg tablet,chewable 250 mg PO DAILY RF: 0 calcium citrate-vitamin D3 [Citracal-D3 Petites] 200 mg-6.25 mcg (250 unit) tablet 1 tab PO DAILY RF: 0 cholecalciferol (vitamin D3) 25 mcg (1,000 unit) capsule 25 mcg PO DAILY RF: 0 vitamin A 2,400 mcg capsule 2,400 mcg PO DAILY RF: 0 prednisone 20 mg tablet See Rx Instructions PO .COMPLEX Qty: 30 RF: 0 nicotine 21-14-7 mg/24 hr patch, TD daily, sequential See Rx Instructions transdermal .COMPLEX Qty: 56 RF: 0 Discharge Orders: Discharge Order (Routine); Ordered 10/15/21 Ordered By: Andrei Lemus Admission Data Admit Date/Time: 10/15/21 02:57 Attending Provider: Halle Singh Admit Provider: Dwain Knutson Primary Care Provider: Rosy Davis Other Providers: Marycruz Ahmadi Supervising Physician Co-Signing Physician Notes Medical Student Supervision Note: I was personally present during medical student patient encounter and independently interviewed and examined the patient and verified the ulloa history and physical, reviewed labs and image studies, discussed the case with Rahul Dorado and agree with the findings and care plan. Chest pain - ruled out for ACS. likely GI related - esophageal spasm after large meal. CTA neg for PE CT chest with ground glass opacity - Recent covid likely contributing. wbc elevated due to steroid use for covid. no further intervention. Elevated bp - systolic 200 on admission. reading at the time of discharge - systolic 138. consider sleep study. pcp follow up Results (P24H) Labs Result diagrams: 10/15/21 05:52 10/15/21 05:52 Abnormal lab results 10/14/21 10/14/21 10/15/21 Range/Units 23:45 23:45 05:52 WBC 19.07 H 15.28 H (4.8-10.8) K/uL RDW Std Deviation 46.4 H 46.9 H (36.4-46.3) fL Neut # (Auto) 12.62 H 8.89 H (1.4-6.5) K/uL Lymph # (Auto) 4.68 H 4.96 H (1.2-3.4) K/uL [place] # (Auto) 1.40 H 1.08 H (0.11-0.59) K/uL Immature Gran # (Auto) 0.23 H 0.17 H (0.00-0.02) K/uL Potassium 3.3 L (3.5-5.1) mmol/L Creatinine (0.6-1.2) mg/dl BUN/Creatinine Ratio 29.2 H (10-20) Glucose 133 H (70-99(Fasting)) mg/dl AST 11 L (13-39) U/L Globulin 2.3 L (2.5-4.0) gm/dl 10/15/21 Range/Units 05:52 WBC (4.8-10.8) K/uL RDW Std Deviation (36.4-46.3) fL Neut # (Auto) (1.4-6.5) K/uL Lymph # (Auto) (1.2-3.4) K/uL [place] # (Auto) (0.11-0.59) K/uL Immature Gran # (Auto) (0.00-0.02) K/uL Potassium (3.5-5.1) mmol/L Creatinine 0.53 L (0.6-1.2) mg/dl BUN/Creatinine Ratio 34.0 H (10-20) Glucose 102 H (70-99(Fasting)) mg/dl AST (13-39) U/L Globulin (2.5-4.0) gm/dl Short CBC 10/14/21 10/15/21 Range/Units 23:45 05:52 WBC 19.07 H 15.28 H (4.8-10.8) K/uL Hgb 14.5 13.8 (12.0-16.0) g/dL Hct 43.0 41.6 (37-47) % Plt Count 268 245 (130-400) K/uL BMP 10/14/21 10/15/21 23:45 05:52 Sodium 140 140 Potassium 3.3 L 3.9 Chloride 103 107 Carbon Dioxide 30 27 BUN 19 18 Creatinine 0.65 0.53 L Glucose 133 H 102 H Calcium 9.7 8.7 Cardiac Enzymes 10/14/21 10/15/21 Range/Units 23:45 05:52 Troponin I < 0.03 < 0.03 (0-0.04) ng/ml Liver Function 10/14/21 Range/Units 23:45 Total Bilirubin 0.3 (0.2-1.0) mg/dl AST 11 L (13-39) U/L ALT 17 (7-52) U/L Alkaline Phosphatase 96 (34-104) U/L Albumin 4.2 (3.4-5.0) gm/dl All other labs normal. Chest X-Ray 10/14/21 23:40 XR chest 1V portable HISTORY: Atypical chest pain. Shortness of breath. COMPARISON: Chest 05/20/2014. FINDINGS: No pneumothorax. No pleural effusions. The cardiac silhouette is mildly enlarged. There is a mildly tortuous thoracic aorta. There is mild diffuse interstitial thickening which may be chronic. No focal lung consolidations to suggest pneumonia. No evidence for pulmonary edema. IMPRESSION: Cardiomegaly with mild interstitial thickening. This may be chronic. No focal lung consolidations identified. ACT 112: Negative or not required by law. Electronically signed by: Sixto Celaya M.D. 10/15/2021 8:02 AM Chest CTA 10/15/21 00:23 CT ANGIOGRAPHY OF THE CHEST, PULMONARY EMBOLUS PROTOCOL CLINICAL HISTORY: Shortness of breath. Atypical chest pain. Evaluate for pulmonary embolus. COMPARISON STUDY: Chest radiograph October 14, 2021. TECHNIQUE: Following IV administration of 121 mL of Optiray, helical axial images of the chest were obtained utilizing the pulmonary embolus protocol. Maximal intensity projections and sagittal and coronal reformats were viewed on an independent 3D workstation. IV contrast was administered without complication. Automated exposure control was utilized for the study. A dose lowering technique was utilized adhering to the principles of ALARA. CT DOSE: 468.47 mGy.cm FINDINGS: No pulmonary emboli are identified. There is no thoracic aortic dissection. Mild cardiomegaly is present. There are no enlarged axillary, mediastinal or hilar lymph nodes. No pericardial effusion is present. No pneumothorax or pleural effusion is present. Central airways are patent. There are groundglass opacities within the lungs with mosaic attenuation. No acute fracture or suspicious lesion is identified within visualized portions of the bony thorax. Visualized portions of the upper abdomen are unremarkable. IMPRESSION: 1. No pulmonary emboli identified. 2. Ground glass opacities with mosaic attenuation within the lungs. The findings may reflect air trapping. An infectious process is within the differential although considered less likely. 3. Mild cardiomegaly. ACT 112: Negative or not required by law. Electronically signed by: Abhijit Pringle M.D. 10/15/2021 8:21 AM
--- NOTE | 2021-10-15 23:47 | XCELERA ---
[id number]
--- NOTE | 2021-10-16 06:37 | Electrocardiogram Report ---
Test Reason : Blood Pressure : / mmHG Vent. Rate : 068 BPM Atrial Rate : 068 BPM P-R Int : 138 ms QRS Dur : 104 ms QT Int : 380 ms P-R-T Axes : 023 -17 048 degrees QTc Int : 404 ms Normal sinus rhythm Normal ECG When compared with ECG of 05-AUG-2015 15:11, QT has shortened Confirmed by Pino Dorsey ([id number]) on 10/16/2021 6:37:00 AM Referred By: REFERRED SELF Confirmed By:Pino Dorsey
== END 2021-10-15 16:00 | disposition home or self-care (01) ==
LOC: ED 23:25 → INTOOBSV 10-15 02:57 → SUATTDRO 10-15 02:57 → EDINP 10-15 02:57